=== PATIENT | male | born 1985 | race Caucasian/White ===

== ENCOUNTER 2018-03-31 00:37 | Outpatient (CLI) | payer BC, SELFPAY ==
--- NOTE | 2018-03-31 09:26 | DI.RAD_ITS ---
SYMPTOMS/DIAGNOSIS: RIGHT CHEST WALL PAIN AFTER TRAUMA, FALL 2 WEEKS AGO PA AND LATERAL CHEST AND RIGHT RIBS: There are no prior comparison exams. A BB marker was placed over the area of the patient's pain in the anterior lower right ribs. Two oblique views of the right ribs were performed. No fracture is identified. The heart size is normal. The lungs appear clear. There is no evidence of pneumothorax. The spine is unremarkable. IMPRESSION: Negative chest and right ribs.
== END 2018-03-31 00:57 ==
PROVIDERS: PCP General Practice; Visit Provider General Practice
DX: R07.89 Other chest pain (principal); W19.XXXA Unspecified fall, initial encounter
CPT/HCPCS: 71046; 71100

== ENCOUNTER 2019-09-13 16:06 | Outpatient (REF) | payer OTHER, SELFPAY ==
[2019-09-15 17:14] LABS: COVID-19 RT-PCR Result NEGATIVE (Negative)
== END 2019-09-13 16:26 ==
LOC: NCHCN 16:06
PROVIDERS: PCP General Practice; Visit Provider Physician Assistant
DX: Z20.828 Contact with and (suspected) exposure to other viral communicable diseases (principal)
CPT/HCPCS: U0003

== ENCOUNTER 2019-10-26 13:47 | Outpatient (REF) | payer OTHER, SELFPAY ==
[2019-10-30 05:05] LABS: SARS-CoV-2 RNA Undetected (Undetected); SARS-CoV-2 Specimen Source Nasopharynx
== END 2019-10-26 14:07 ==
LOC: NCHCN 13:47
PROVIDERS: PCP General Practice; Visit Provider Nurse Practitioner Family
DX: Z20.828 Contact with and (suspected) exposure to other viral communicable diseases (principal)
CPT/HCPCS: U0003

== ENCOUNTER 2019-11-02 14:28 | Outpatient (REF) | payer OTHER, SELFPAY ==
[2019-11-07 12:05] LABS: SARS-CoV-2 RNA Undetected (Undetected); SARS-CoV-2 Specimen Source Nasopharynx
== END 2019-11-02 14:48 ==
LOC: NCHCN 14:28
PROVIDERS: PCP General Practice; Visit Provider Nurse Practitioner Family
DX: Z20.828 Contact with and (suspected) exposure to other viral communicable diseases (principal)
CPT/HCPCS: U0003

== ENCOUNTER 2021-09-21 16:35 | Outpatient (REF) | payer OTHER, SELFPAY ==
[2021-09-21 17:12] LABS: HCT 48.7 % (40.0-50.0); HGB 15.9 g/dL (13.5-17.5); MCH 26.6 pg (27.0-33.0); MCHC 32.6 % (32.0-36.0); MCV 81 fL (80-95); MPV 11.5 fL (8.0-11.0); Platelet Count 223 10^3/uL (130-400); RBC 5.98 10^6/uL (4.36-5.78); RDW 13.1 % (11.8-14.1); RDW-SD 38.3 fL; WBC 5.89 10^3/uL (4.4-10.8)
[2021-09-21 17:23] LABS: ALT 71 U/L (16-63); AST 31 U/L (15-37); Albumin 4.5 g/dL (3.4-5.0); Alkaline Phosphatase 80 U/L (46-116); BUN 17 mg/dL (7-18); Bilirubin, Total 0.4 mg/dL (0.2-1.0); Calcium 8.9 mg/dL (8.5-10.1); Calculated LDL 170 mg/dL (<100); Chloride 109 mmol/L (98-107); Cholesterol 272 mg/dL (<200); Glucose 92 mg/dL (74-106); HDL Cholesterol 36 mg/dL (40-60); Potassium 4.9 mmol/L (3.5-5.1); Sodium 144 mmol/L (136-145); TSH (W/Ref FT4) 1.19 uIU/mL (0.36-3.74); Total Protein 7.4 g/dL (6.4-8.2); Triglyceride 333 mg/dL (<150)
[2021-09-23 09:49] LABS: Hepatitis C Ab w Rflx HCV PCR Negative (Negative)
[2021-09-23 09:51] LABS: HIV-1/2 Ag & Ab Screen Negative (Negative)
[2021-09-26 16:56] LABS: Testosterone, Free 10.5 ng/dL (4.85-19.0); Testosterone, Total 502 ng/dL (240-950)
== END 2021-09-21 16:36 | disposition home or self-care (01) ==
LOC: LBN 16:35
PROVIDERS: PCP Physician Assistant; Visit Provider Nurse Practitioner Family
DX: E78.5 Hyperlipidemia, unspecified (principal); Z00.00 Encounter for general adult medical examination without abnormal findings
CPT/HCPCS: 80053; 80061; 84402; 84403; 85027; 86803; 87389; 84443

== ENCOUNTER 2022-09-01 19:36 | Outpatient (REF) | payer BC, SELFPAY | END 2022-09-01 19:37 | disposition home or self-care (01) | LOC: LBN 19:36 | PROVIDERS: PCP Physician Assistant; Visit Provider Nurse Practitioner Family | DX: J02.9 Acute pharyngitis, unspecified (principal) | CPT/HCPCS: 87070 ==

== ENCOUNTER → 2023-06-15 02:09 | Outpatient (CLI) | payer OTHER, SELFPAY ==
--- NOTE | 2023-06-15 10:20 | DI.RAD_ITS ---
Exam(s) XR FOOT RT COMPLETE EXAM: XR FOOT RT COMPLETE CLINICAL HISTORY: Right foot pain,m79.671,m21.611,bunion rt foot. TECHNIQUE: 2D digital imaging was performed of the right foot. Three images were obtained. AP, obl ique and lateral views were obtained. COMPARISON: No exams were available for comparison FINDINGS: There is artifact on the lateral view limiting evaluation. BONES: No acute fracture is present. No bony destructive lesion is seen. Subchondral cyst is seen in the head of the 1st metatarsal bone. JOINTS: No dislocation present. There is a hallux valgus SOFT TISSUE: Normal. IMPRESSION: Hallux valgus. DATA REPOSITORY: RADIATION DOSE DELIVERED:
--- NOTE | 2023-06-15 10:25 | DI.RAD_ITS ---
Exam(s) XR FOOT LT COMPLETE EXAM: XR FOOT LT COMPLETE CLINICAL HISTORY: Left foot pain,bunion,m21.612,m79.672. TECHNIQUE: 2D digital imaging was performed of the left foot. Three images were obtained. AP, obli que and lateral views were obtained. COMPARISON: No exams were available for comparison FINDINGS: BONES: No acute fracture is present. No bony destructive lesion is seen. Second and 3rd toe hammertoe are noted. JOINTS: No dislocation present. The joint spaces are well maintained. SOFT TISSUE: Normal. IMPRESSION: No acute abnormality. DATA REPOSITORY: RADIATION DOSE DELIVERED:
== END ==
PROVIDERS: PCP Physician Assistant; Visit Provider Podiatrist
DX: M79.671 Pain in right foot (principal); M79.672 Pain in left foot
CPT/HCPCS: 73630

== ENCOUNTER → 2023-10-12 04:15 | Outpatient (CLI) | payer MEDICAID, SELFPAY ==
--- NOTE | 2023-10-12 | DI.US_ITS ---
Exam(s) US SCROTUM EXAM: US SCROTUM CLINICAL HISTORY: SCROTAL MASS,N50.89,LT SCROTAL CYST,? EPIDIDYMAL CYST. TECHNIQUE: Scrotal ultrasound performed using grayscale, color-flow and spectral Doppler analysis. COMPARISON: No exams were available for comparison FINDINGS: RIGHT TESTICLE: 3.3 x 2.0 x 2.4 cm Echogenicity: Normal. Contour: Smooth. Mass: None seen. Microlithiasis: None. Hydrocele: None. Varicocele: Mildly prominent vessels near the epididymal tail. Less than 3 millimeter diameter. Hernia: No peristalsing bowel loop identified. Epididymis: Normal. Scrotum: Normal. LEFT TESTICLE: 3.5 x 2.2 x 2.5 cm Echogenicity: Normal. Contour: Smooth. Mass: None seen. Microlithiasis: None. Hydrocele: None. Varicocele: None. Prominent vessels adjacent to evident and tear, less than 3 millimeters in diamete r. Hernia: No peristalsing bowel loop identified. Epididymis: Normal. Scrotum: Normal. DOPPLER: Color: Symmetric and uniform, no hyperemia. Duplex: Bilateral testicular arterial waveforms visualized. IMPRESSION: No acute abnormality. Normal appearing bilateral testicles and epididymi. DATA REPOSITORY:
== END ==
PROVIDERS: PCP Physician Assistant; Visit Provider Physician Assistant
DX: N50.89 Other specified disorders of the male genital organs (principal)
CPT/HCPCS: 76870

== ENCOUNTER 2024-01-06 15:53 | Outpatient (REF) | payer MEDICAID, SELFPAY ==
[2024-01-06 15:40] LABS: Hemoglobin A1C 5.3 % (<5.7)
[2024-01-06 16:13] LABS: ALT 71 U/L (16-63); AST 33 U/L (15-37); Albumin 4.6 g/dL (3.4-5.0); Alkaline Phosphatase 79 U/L (46-116); Anion Gap 6.8 mmol/L (3-11); BUN 14 mg/dL (7-18); Bilirubin, Total 0.75 mg/dL (0.2-1.0); CO2 29.2 mmol/L (21.0-32.0); Calcium 9.5 mg/dL (8.5-10.1); Calculated LDL 222 mg/dL (<100); Chloride 105 mmol/L (98-107); Cholesterol 293 mg/dL (<200); Estimated GFR 100.03 (mL/min/1.73m2); Glucose 89 mg/dL (74-106); HDL Cholesterol 43 mg/dL (40-60); Potassium 4.5 mmol/L (3.5-5.1); Sodium 141 mmol/L (136-145); Total Protein 7.9 g/dL (6.4-8.2); Triglyceride 142 mg/dL (<150)
[2024-01-06 23:16] LABS: Hepatitis C Ab w Rflx HCV PCR Negative (Negative)
== END 2024-01-06 15:54 | disposition home or self-care (01) ==
LOC: NCHCN 15:53
PROVIDERS: PCP Physician Assistant; Visit Provider Physician Assistant
DX: E78.5 Hyperlipidemia, unspecified (principal); Z13.1 Encounter for screening for diabetes mellitus; Z11.59 Encounter for screening for other viral diseases; R79.89 Other specified abnormal findings of blood chemistry
CPT/HCPCS: 80053; 80061; 86803; 83036

== ENCOUNTER 2024-03-18 11:22 | Outpatient (CLI) | payer OTHER, MEDICAID, SELFPAY ==
--- NOTE | 2024-03-18 | DI.RAD_ITS ---
Exam(s) XR CHEST 2V PA LATERAL EXAM: XR CHEST 2V PA LATERAL CLINICAL HISTORY: R05.9 Cough. TECHNIQUE: 2D digital imaging was performed. COMPARISON: No exams were available for comparison FINDINGS: 2 views: Heart size is normal. The mediastinum is not widened. Lungs are clear. No infiltrates nor pleural effusions. IMPRESSION: No acute pulmonary findings. DATA REPOSITORY: RADIATION DOSE DELIVERED:
== END 2024-03-18 11:42 ==
LOC: DI 11:25
PROVIDERS: PCP Physician Assistant; Visit Provider Physician Assistant
DX: R05.9 Cough, unspecified (principal)
CPT/HCPCS: 71046

== ENCOUNTER 2025-03-22 03:21 | Outpatient (CLI) | payer OTHER, SELFPAY ==
[2025-03-22 09:57] LABS: ALT 76 U/L (10-49); AST 40 U/L (<34); Albumin 4.9 g/dL (3.2-5.0); Alkaline Phosphatase 72 U/L (46-116); Anion Gap 6.8 mmol/L (3-11); BUN 13 mg/dL (9-23); Bilirubin, Total 0.70 mg/dL (0.2-1.2); CO2 27.2 mmol/L (20.0-31.0); Calcium 9.4 mg/dL (8.3-10.6); Chloride 108 mmol/L (98-107); Cholesterol 199 mg/dL (<200); Glucose 97 mg/dL (74-106); HDL Cholesterol 44 mg/dL (>40); Potassium 4.1 mmol/L (3.5-5.1); Sodium 142 mmol/L (136-145); Total Protein 7.5 g/dL (5.7-8.2)
== END 2025-03-22 03:22 | disposition home or self-care (01) ==
LOC: LBO 03:21
PROVIDERS: PCP Physician Assistant; Visit Provider Physician Assistant
DX: E78.5 Hyperlipidemia, unspecified (principal)
CPT/HCPCS: 36415; 80053; 80061